=== PATIENT | female | born 1960 | race Caucasian/White ===

== ENCOUNTER 2022-11-14 10:33 | Outpatient (REF) | payer OTHER, SELFPAY ==
--- NOTE | ~2022-11-14 | XR_ITS ---
EXAMINATION: XR LUMBOSACRAL SPINE WITH OBLIQUES CLINICAL INFORMATION: Lumbago with sciatica. COMPARISON: None available. TECHNIQUE: AP and lateral of the lumbar spine with flexion and extension. FINDINGS: There is posterior fixation from L4 through S1 with pedicular screws. Hardware appears intact. There is a biconvex thoracolumbar scoliosis present. Degenerative changes are present at all visualized levels, even the lower thoracic spine, with disc space narrowing and some mild osteophyte formation. There is grade 1 anterolisthesis of L4 upon L5, L3 upon L4 and L2 upon L3. This appears relatively stable with flexion and extension. However, little motion is seen between the neutral, flexion and extension positions. An intramedullary deneen and screw is present in the left hip. Surgical clips in the gallbladder fossa. XR/XR lumbar spine 4V min IMPRESSION: 1. Status post posterior fixation from L4 through S1. 2. Multilevel spondylolisthesis and degenerative changes as described above. No instability is seen between flexion and extension.
== END 2022-11-14 10:34 | disposition home or self-care (01) ==
LOC: HO.HOSX 10:33
PROVIDERS: Visit Provider Physician Assistant
DX: M54.40 Lumbago with sciatica, unspecified side (principal); M54.12 Radiculopathy, cervical region
CPT/HCPCS: 72110

== ENCOUNTER 2023-04-21 17:15 | Outpatient (REF) | payer OTHER, SELFPAY ==
--- NOTE | ~2023-04-21 | MR_ITS ---
EXAMINATION: MR CERVICAL SPINE WITHOUT CONTRAST CLINICAL INFORMATION: Radiculopathy COMPARISON: None available. TECHNIQUE: MRI of the cervical spine was obtained using routine sequences without contrast. FINDINGS: Reversal of the normal cervical lordosis with dextrocurvature of the cervical spine. Grade 1 anterolisthesis of C3-C4, C7-T1, T1-T2. Multilevel chronic degenerative endplate height loss. There is multilevel degenerative endplate edema, most prominent at C3-C6. There is marked asymmetric left C3-C4 facet/perifacet edema with a facet joint effusion. No definite spinal cord signal abnormality. C2-C3: Left greater than right facet arthropathy. The spinal canal and neural foramen are patent. C3-C4: Disc osteophyte complex with moderate to severe spinal canal stenosis. There is severe bilateral neural foraminal stenosis secondary to uncovertebral and facet arthropathy. C4-C5: Disc osteophyte complex with severe spinal canal stenosis and mass effect on the cervical spinal cord. No definite underlying cord signal abnormality. Severe bilateral neural foraminal stenosis secondary to uncovertebral and facet arthropathy. C5-C6: Disc osteophyte complex with severe spinal canal stenosis. There is severe bilateral neural foraminal stenosis secondary to uncovertebral and facet arthropathy. C6-C7: Disc osteophyte complex with moderate spinal canal stenosis. Severe bilateral neural foraminal stenosis, greater on the left, secondary to uncovertebral and facet arthropathy. C7-T1: Anterolisthesis on the basis of advanced facet arthropathy. The spinal canal is patent. Mild narrowing of the neural foramen. MR/MR cervical spine wo con IMPRESSION: Severe multilevel degenerative changes of the cervical spine. There is severe spinal canal stenosis at C4-C5 and C5-C6 with indentation of/mass effect on the ventral spinal cord. No definite underlying spinal cord signal abnormality. Severe multilevel neural foraminal stenoses as described above. There is prominent asymmetric left-sided facet/perifacet edema at C3-C4 with facet joint fluid. Finding may be on the basis of asymmetric degenerative change, but an infectious or inflammatory facetitis should be excluded clinically.
== END 2023-04-21 17:16 | disposition home or self-care (01) ==
LOC: HO.MRI 17:15
PROVIDERS: PCP Internal Medicine; Visit Provider Physician Assistant
DX: M54.12 Radiculopathy, cervical region (principal)
CPT/HCPCS: 72141

== ENCOUNTER → 2023-05-07 10:45 | Outpatient (BNV) | payer OTHER, SELFPAY | PROVIDERS: PCP Internal Medicine; Visit Provider Internal Medicine Cardiovascular Disease | DX: Z01.818 Encounter for other preprocedural examination (principal); M54.40 Lumbago with sciatica, unspecified side | CPT/HCPCS: 93010 ==

== ENCOUNTER 2023-05-21 06:04 | Day surgery (SDC) | payer OTHER, SELFPAY ==
[2023-05-06 10:25] VITALS: BMI 37.7
--- NOTE | 2023-05-07 | ECG_ITS ---
Test Reason : PRE OP Blood Pressure : / mmHG Vent. Rate : 083 BPM Atrial Rate : 083 BPM P-R Int : 132 ms QRS Dur : 076 ms QT Int : 368 ms P-R-T Axes : 026 005 011 degrees QTc Int : 432 ms Normal sinus rhythm Minimal voltage criteria for LVH, may be normal variant ( R in aVL ) Borderline ECG No previous ECGs available Referred By: Kim Christine Electronically Signed By:NEMESIO RUSHING MD
[2023-05-07 10:15] VITALS: BP 149/77; PULSE 88; RESP 18; O2SAT 96
--- NOTE | 2023-05-07 10:19 | HO.ANESPROP2 ---
Documented by User: Kim Christine NP 05/20/23 08:18 HPI - Anesthesia Eval Consult details Narrative: 62yo F for Far Lateral L1-2 MLD Microdiscectomy Metrix tubes,L2-3 Hemilaminectomy, 05/21/23 No recent illness. Just started with dry cough, likely PND No CP/SOB with >4 mets TOYIN. Unable to tolerate CPAP Asthma. Stable. Albuterol ~ 1 x weekly GERD. Controlled with ppi PMFSH Active Problems Active Problems: All Active Problems (Updated 05/07/23 @ 08:51 by Oralia Silva RN) Back pain of lumbar region with sciatica (Acute) Cervical radiculopathy (Acute) Past Medical History Medical History Pneumonia Arthritis Back pain Hx of transfusion of packed red blood cells Pre-diabetes GERD (gastroesophageal reflux disease) Sleep apnea Asthma HTN (hypertension) Family History Family history of problems with anesthesia: No Surgical History Surgical History History of hip surgery History of back surgery History of Problems with Anesthesia: No Social History Social History Are you a primary resident care manager to a significant other at home: No Do you presently have visiting nurse or other home services: No Patient Tobacco Use Status: Never used Tobacco Use of substances other than those prescribed or required for medical reasons: Yes Substance Use Frequency: Daily Have you been hit, kicked, punched, or otherwise hurt by someone within the past year? If so, by whom?: No Are you DNR?: No Advance Directives: No Advance Directives Information Provided: Yes Advance Directives on File: No Recently lost weight without trying: No Eating poorly because of decreased appetite: No Nutrition Risks: No Nutritional Risk Patient : No : No Poor oral hygiene: No Meds Allergies Allergy/AdvReac Type Severity Reaction Status Date / Time No Known Allergies Allergy Verified 05/06/23 09:56 Home Medications Medication Instructions Recorded Confirmed Last Taken Type albuterol sulfate 90 mcg/actuation 2 puff inhalation Q6H PRN Wheezing 05/06/23 05/06/23 Unknown History aerosol inhaler alendronate 70 mg tablet 70 mg PO QWEEK 05/06/23 05/06/23 Unknown History cetirizine 10 mg tablet (Zyrtec) 10 mg PO DAILY 05/06/23 05/06/23 Unknown History cyclobenzaprine 5 mg tablet 5 mg PO BID PRN Back Pain 05/06/23 05/06/23 Unknown History gabapentin 300 mg capsule 300 mg PO BID 05/06/23 05/06/23 Unknown History hydrochlorothiazide 12.5 mg tablet 12.5 mg PO DAILY 05/06/23 05/06/23 Unknown History lisinopril 40 mg tablet 40 mg PO DAILY 05/06/23 05/06/23 Unknown History multivitamin 1 tab PO DAILY 05/06/23 05/06/23 Unknown History omega 4-ywn-uxp-fish oil 1,000 mg 1 cap PO DAILY 05/06/23 05/06/23 Unknown History (120 mg-180 mg) capsule (Fish Oil) omeprazole 20 mg capsule,delayed 20 mg PO DAILY 05/06/23 05/06/23 Unknown History release Exam Height,Weight and Vital Signs: Height 5 ft 2 in Weight 93.44 kg Last Vital Signs Pulse 88 05/07/23 10:15 Resp 18 05/07/23 10:15 BP 149/77 H 05/07/23 10:15 Pulse Ox 96 05/07/23 10:15 O2 Del Method Room Air 05/07/23 10:15 Pertinent Lab Results Pertinent Lab Results: Lab Results 05/07/23 Range/Units 10:41 WBC 5.5 (4.8-10.8) X10*3/uL RBC 5.05 (4.20-5.50) X10*6/uL Hgb 13.7 (12.0-16.0) g/dl Hct 42.8 (37.0-47.0) % MCV 84.8 (80.0-98.0) fL MCH 27.1 (27.0-33.0) pg MCHC 32.0 (31.0-35.0) g/dl RDW 13.2 (11.0-16.0) % Plt Count 200 (160-400) X10*3/uL MPV 10.3 (9.4-12.3) fL Absolute Nucleated RBC 0.000 (0.0-0.012) X10*3/uL Nucleated RBC % (auto) 0.0 (0.0-0.2) /100WBC Sodium 138 (135-145) mmol/L Potassium 4.0 (3.3-5.1) mmol/L Chloride 104 (96-108) mmol/L Carbon Dioxide 26 (22-29) mmol/L Anion Gap 12 (12-20) BUN 20 H (9-16) mg/dL Creatinine 0.77 (0.5-1.4) mg/dL Estim Creat Clear Calc 79.6 Estimated GFR > 60 Random Glucose 140 H (60-115) mg/dL Calcium 9.6 (8.4-10.2) mg/dL Narrative Narrative: EKG 04/2023 Vent. Rate : 083 BPM Atrial Rate : 083 BPM P-R Int : 132 ms QRS Dur : 076 ms QT Int : 368 ms P-R-T Axes : 026 005 011 degrees QTc Int : 432 ms Normal sinus rhythm Minimal voltage criteria for LVH, may be normal variant ( R in aVL ) Borderline ECG No previous ECGs available Airway Mallampati Class: III TM Dist: >3cm Neck ROM: Limited Loose/Missing/Broken Teeth: Yes (Left broken molar, #10 crowned and crowned molars) Heart: RRR Lungs: CTAB Assessment and Plan Assessment Anesthesia Assessment: Anesthesia Plan Discussed and PAT Visit Final Anesthetic Review Family History of Problems with Anesthesia: No History of Problems with Anesthesia: No Documented by User: Broderick Rushing MD 05/21/23 07:37 [facility] Past Medical History Medical History Pneumonia Arthritis Back pain Hx of transfusion of packed red blood cells Pre-diabetes GERD (gastroesophageal reflux disease) Sleep apnea Asthma HTN (hypertension) Surgical History Surgical History History of hip surgery History of back surgery Social History Social History Are you a primary resident care manager to a significant other at home: No Do you presently have visiting nurse or other home services: No Patient Tobacco Use Status: Never used Tobacco Use of substances other than those prescribed or required for medical reasons: Yes Substance Use Frequency: Daily Have you been hit, kicked, punched, or otherwise hurt by someone within the past year? If so, by whom?: No Are you DNR?: No Advance Directives: No Advance Directives Information Provided: Yes Advance Directives on File: No Recently lost weight without trying: No Eating poorly because of decreased appetite: No Nutrition Risks: No Nutritional Risk Patient : No : No Poor oral hygiene: No Meds Allergies Allergy/AdvReac Type Severity Reaction Status Date / Time No Known Allergies Allergy Verified 05/06/23 09:56 Home Medications Medication Instructions Recorded Confirmed Last Taken Type albuterol sulfate 90 mcg/actuation 2 puff inhalation Q6H PRN Wheezing 05/06/23 05/06/23 Unknown History aerosol inhaler alendronate 70 mg tablet 70 mg PO QWEEK 05/06/23 05/06/23 Unknown History cetirizine 10 mg tablet (Zyrtec) 10 mg PO DAILY 05/06/23 05/06/23 Unknown History cyclobenzaprine 5 mg tablet 5 mg PO BID PRN Back Pain 05/06/23 05/06/23 Unknown History gabapentin 300 mg capsule 300 mg PO BID 05/06/23 05/06/23 Unknown History hydrochlorothiazide 12.5 mg tablet 12.5 mg PO DAILY 05/06/23 05/06/23 Unknown History lisinopril 40 mg tablet 40 mg PO DAILY 05/06/23 05/06/23 Unknown History multivitamin 1 tab PO DAILY 05/06/23 05/06/23 Unknown History omega 1-wad-owh-fish oil 1,000 mg 1 cap PO DAILY 05/06/23 05/06/23 Unknown History (120 mg-180 mg) capsule (Fish Oil) omeprazole 20 mg capsule,delayed 20 mg PO DAILY 05/06/23 05/06/23 Unknown History release Exam Airway Mallampati Class: I Assessment and Plan Final Anesthetic Review NPO: Yes ASA Class: III Final Preanesthetic Review: No Changes in Pt Med Stat, Meds/Allgs Chart Reviewed, Consent Obtained/Reviewed and Anes Risks/Benef Reviewed Patient Risk: Intermediate Procedure Risk: Intermediate Anesthetic Plan Anesthetic Plan: GA Disposition: Standard PACU
[2023-05-07 10:51] LABS: Hematocrit 42.8 % (37.0-47.0); Hemoglobin 13.7 g/dl (12.0-16.0); Mean Corpuscular Hemoglobin 27.1 pg (27.0-33.0); Mean Corpuscular Volume 84.8 fL (80.0-98.0); Mean Platelet Volume 10.3 fL (9.4-12.3); Platelet Count 200 X10*3/uL (160-400); Red Blood Count 5.05 X10*6/uL (4.20-5.50); Red Cell Distribution Width 13.2 % (11.0-16.0); White Blood Count 5.5 X10*3/uL (4.8-10.8)
[2023-05-07 11:20] LABS: Anion Gap 12 (12-20); Blood Urea Nitrogen 20 mg/dL (9-16); Calcium 9.6 mg/dL (8.4-10.2); Carbon Dioxide 26 mmol/L (22-29); Chloride 104 mmol/L (96-108); Creatinine Clr Calc Pharmacy 79.6; Estimated Glomerular Filt Rate > 60; Glucose Random 140 mg/dL (60-115); Sodium 138 mmol/L (135-145)
[2023-05-21] VITALS (7 sets, daily range): BP systolic 107–128; BP diastolic 60–72; PULSE 82–108; RESP 14–18; TEMP 36.3–36.8; O2SAT 93–97
--- NOTE | ~2023-05-21 | FL_ITS ---
EXAMINATION: XR FLUOROSCOPY WITH IMAGES CLINICAL INFORMATION: Far lateral L1-L2 microdiscectomy, left. COMPARISON: Lumbar spine x-ray November 2022 TECHNIQUE: Fluoroscopy Supervised By: Dr. Julio Colon. Fluoroscopy Time: 0.1 minutes. Cumulative Dose: 16.0 mGy. DAP: 3.07 Gycm2. Images: 2. FINDINGS: Initial image demonstrates surgical instrument and probe posterior to the L1-L2 disc space. Second image demonstrates surgical instrument and probe posterior to the L2 vertebral body and L2-L3 disc space. FL/FL guidance in OR IMPRESSION: Fluoroscopy guidance for lumbar surgery.
[2023-05-21] MEDS: methocarbamoL 750 MG TABLET PO (06:28)
[2023-05-21] MEDS: Gabapentin 300 MG CAPSULE PO (06:29)
--- NOTE | 2023-05-21 09:56 | P.DS_ITS ---
DS: Providers Provider Date of Service: 05/21/23 Date of discharge: 05/21/23 Primary care physician: Sachin Lawrence MD Admitting clinician: Julio Colon DS: Diagnosis Discharge Diagnosis (1) Back pain of lumbar region with sciatica: Status: Acute DS: Summary Time Attestation Discharge coordination time: Less than 30 minutes Quality: Safe Use of Opioids Does Pt have an Active Cancer Diagnosis on the Problem List?: No Quality: Stroke Does the patient have a stroke diagnosis?: No Physical Exam Vital Signs: Vital Signs: Last Vital Signs Temp 97.5 F 05/21/23 06:41 Pulse 108 H 05/21/23 06:41 Resp 16 05/21/23 06:41 BP 109/65 05/21/23 06:41 Pulse Ox 95 05/21/23 06:41 O2 Del Method Room Air 05/21/23 06:41 BMI result Body Mass Index 37.7 Discharge Plan Discharge Patient Disposition: Home, Self-Care Referrals: Sachin Lawrence MD [Primary Care Provider] - 1 Week Discharge Medications: New docusate sodium [Colace] 100 mg capsule 100 mg PO BID Qty: 20 0RF oxycodone 5 mg tablet 5 mg PO Q4H PRN (Reason: pain) Qty: 30 0RF Rx Instructions: Partial Fill upon patient request. Continued multivitamin Tablet 1 tab PO DAILY cetirizine [Zyrtec] 10 mg Tablet 10 mg PO DAILY gabapentin 300 mg capsule 300 mg PO BID omeprazole 20 mg Capsule,Delayed Release(Dr/Ec) 20 mg PO DAILY lisinopril 40 mg tablet 40 mg PO DAILY omega 0-cnc-wog-fish oil [Fish Oil] 1,000 mg (120 mg-180 mg) Capsule 1 cap PO DAILY albuterol sulfate 90 mcg/actuation Hfa Aerosol Inhaler 2 puff INHALATION Q6H PRN (Reason: Wheezing) hydrochlorothiazide 12.5 mg tablet 12.5 mg PO DAILY cyclobenzaprine 5 mg Tablet 5 mg PO BID PRN (Reason: Back Pain) alendronate 70 mg tablet 70 mg PO QWEEK Patient Comments: every thursday Discharge Orders: Discharge Order (Routine); Ordered 05/21/23 Ordered By: Patrick Sage Diet: Advance to usual diet Activity on Discharge: As tolerated Activity Restrictions/Additional Instructions: After your spinal surgery we ask you to observe the following restrictions/guidelines: Activity: It is normal to feel some discomfort as you increase your activity, but that will improve with time. We ask you avoid heavy lifting or acitivities that cause pain. As a general rule, 8lbs is a safe limit for lifting right after surgery. Walk as much as you feel comfortable but not to exhaustion. You will feel extra tired the first few days after surgery. Stay well hydrated. It is OK to walk up and down stairs You may return to driving when you are off narcotics (such as vicodin, oxycodone, dilaudid, etc), and you are back to normal functional capacity. If you have any concerns please check with office before driving. Return to work is specific to each patient and each surgery, so please speak with your doctor/PA at first follow up. Please bring paperwork such as FMLA at that time if you need it filled out. Medications: For optimum pain control, it is best to start with a combination of 500 mg of Tylenol every 4 hours with 600 mg of Motrin every 8 hours, and use narcotics as needed in between for breakthrough pain. We will give you a short supply of narcotics after surgery (usually one weeks worth). If you need more please call the office but do not use more than prescribed. You will need to give our office 48 hours notice if you need narcotics refilled and we do not fill narcotics on weekends or evenings. If you are on a narcotic, it is a good idea to take a stool softener such as colace or senna to avoid constipation If you take blood thinner such as aspirin, Plavix, Coumadin, Effient, Eliquis etc for conditions such as Afib, DVT, Pulmonary embolus, coronary disease, gilberto nts etc please speak with your surgeon about specific details as to when you can resume these medications. You can resume NSAIDs on post op day 1 (eg: Motrin, Naproxen, etc). Follow up: Please call the office, , after surgery to arrange a 3 week follow up for wound check. Wound Care: You may remove your dressing on the first day after surgery. ?You may ?leave open to air. Please do not remove the steri strips underneath. they will fall off on their own in one week. IT IS NORMAL FOR THE WOUND TO OOZE OR BE BLOODY FOR A FEW DAYS AFTER SURGERY. ?IF THIS HAPPENS JUST PLACE NEW DRESSING OVER IT TO AVOID STAINING CLOTHES. You may shower on post op day # 1 We ask that you do not let the water soak the wound. If it does get wet, just towel dry lightly. Please do not scrub your incision or place any type of chemical/ointment on the wound. No tub baths, pools or jacuzzis for one month. If you have any leaking or redness from your wound, or fevers, please call office
[2023-05-21] MEDS: oxyCODONE HCl Immed Release 5 MG TABLET PO (10:14)
[2023-05-21] MEDS: ondansetron HCL 4 MG/2 ML VIAL IVPUSH (10:41)
--- NOTE | 2023-05-21 11:07 | W.PM.OPN ---
Operative Note Operative Note Date of Service: 05/21/23 Narrative: Preop diagnosis: left L1-L2 lumbar disc herniation, extraforaminal ( far lateral) with lumbar radiculopathy; L2-L3 spinal stenosis, lateral recess stenosis Postop diagnosis: same Procedure: left L1-L2 lumbar microdiskectomy, extraforaminal approach; left L3-4 hemilaminotomy, partial facetectomy and foraminotomy to decompress the thecal sac and exiting nerve root with microscope Description of procedure: This patient is suffering from a left L2 and L3 lumbar radiculopathy due to a left L1-L2 extraforaminal lumbar disc herniation compressing the L2 nerve root and L2-3 spinal stenosis. The patient was offered a lumbar microdiskectomy L1-L2 through an extraforaminal approach and a left-sided decompression of the L2-3 region.. The procedure and complications were explained. The patient was consented. The patient was brought to the operating room and endotracheally intubated. The patient was turned in the prone position on Efrem frame. Prepping and draping was done followed by time-out. The lateral border of the L1-L2 facet joint was marked on the skin with x-ray. A left paramedian incision was made. The muscle fascia was opened. Sequential dilators were inserted followed by a 18 mm Metrx tube. the lateral border of the L1-L2 facet joint as well as the transverse process of L L1 and L L2were exposed. The microscope was brought in. The lateral part of facet joint was resected with a high-speed drill. The medial border of the L2 pedicle was identified as well as the foramen. I went into the Kambin's triangle and exposed the intervertebral disc and the L2 nerve root. A nerve hook was maneuvered under the nerve root and became clear that no disc herniation was present any more. Then we decided to move to the L2-3 interspace for which a separate midline incision was made. The left L2-3 laminae were exposed by the physician fws faculty assistant. Hemostasis was done. I took over the procedure. A left L2-3 hemilaminotomy was done, including a partial facetectomy under the microscope. The flavum ligament was opened and resected to decompress the thecal sac and exiting L3 nerve root on the left side. A long nerve hook could be easily passed lateral from the nerve root as a sign of adequate decompression. Physician fws faculty assistant took over the procedure and performed hemostasis and closure of the two incisions in 2 layers. Steri-Strips were used to approximate the incisions. An Oppsite with tegaderm was used to cover the incision. All sponge and needle counts were correct. The patient was extubated and transported in stable condition to recovery room. Surgeon: Julio Colon MD Assist: kirsty Reis Anesthesia: general Estimated blood loss: minimal Specimen: none Deposition: Discharge home
== END 2023-05-21 11:19 | disposition home or self-care (01) ==
PROVIDERS: Nurse Practitioner; PCP Internal Medicine; Visit Provider Neurological Surgery
PROC: (CPT 63047; principal; 2023-05-21 07:30)
DX: M48.061 Spinal stenosis, lumbar region without neurogenic claudication (principal); M54.40 Lumbago with sciatica, unspecified side; M54.16 Radiculopathy, lumbar region; M51.26 Other intervertebral disc displacement, lumbar region; M41.9 Scoliosis, unspecified; M54.12 Radiculopathy, cervical region; Z98.1 Arthrodesis status; G47.33 Obstructive sleep apnea (adult) (pediatric); I10 Essential (primary) hypertension; Z79.899 Other long term (current) drug therapy; Z98.890 Other specified postprocedural states
CPT/HCPCS: 63047; 63056; 36415; 80048; 85027; 93005; J0131; J0690; J1100; J1170; J1885; J2405; J2704; J3010

== ENCOUNTER → 2023-05-21 06:04 | Outpatient (BNV) | payer OTHER, SELFPAY | PROVIDERS: PCP Internal Medicine; Visit Provider Physician Assistant | DX: M54.40 Lumbago with sciatica, unspecified side (principal) | CPT/HCPCS: 63047; 63056; 99499 ==

== ENCOUNTER 2023-06-12 09:24 | Outpatient (AMB) | payer OTHER, SELFPAY ==
--- NOTE | 2023-06-12 09:36 | HO.SPINEOV ---
Intake Intake Visit Reasons: 1st post op Intake Note: Ms. Hansen is here today for her 1st post-op visit. Securities Consultant Required: No Allergies No Known Allergies Allergy (Verified 05/06/23 09:56) Assessment & Plan Assessment & Plan (1) Status post lumbar spine surgery for decompression of spinal cord: Code(s): Z98.890 - Other specified postprocedural states Plan Procedure: left L1-L2 lumbar microdiskectomy, extraforaminal approach; left L3-4 hemilaminotomy, partial facetectomy Oralia comes in today for her 1st postoperative visit. She reports she is very satisfied with the surgery and feels much better than she did pre-operatively. The patient reports she is up, walking around and completing the majority of her ADLs. She reports that she no longer suffers from her left-sided shooting radiculopathy. She reports no pain and no neurological symptoms. No neurological deficits. Patient is able to ambulate well, rises from a seated position without difficulty. Incision sites are closed, well healing, with no signs of drainage. The patient currently has no symptoms to follow-up on, her surgical site continues to heal well. She was encouraged to reach out to our office for follow-up appointment if needed. Jonathan Colon MD,PhD [facility] Coding Level of Care Code Global (87460) Diagnoses Status post lumbar spine surgery for decompression of spinal cord Z98.890
== END 2023-06-12 09:45 | disposition home or self-care (01) ==
PROVIDERS: PCP Internal Medicine; Visit Provider Physician Assistant
DX: Z98.890 Other specified postprocedural states (principal)
CPT/HCPCS: 99024

== ENCOUNTER → 2023-06-12 09:24 | Outpatient (BNVA) | payer OTHER, SELFPAY | PROVIDERS: PCP Internal Medicine; Visit Provider Physician Assistant ==